=== PATIENT | male | born 1945 | race Caucasian/White ===

== ENCOUNTER → 2016-09-16 | Outpatient (CLI) | payer MEDICARE, OTHER | LOC: RAD 06:55 | PROVIDERS: ATTEND Orthopaedic Surgery | DX: M25.522 Pain in left elbow (principal); M19.022 Primary osteoarthritis, left elbow ==

== ENCOUNTER 2016-10-19 05:33 | Day surgery (SDC) | payer MEDICARE, OTHER ==
[2016-10-12 09:21] LABS: APPEARANCE,URINE CLEAR; BILIRUBIN,URINE NEGATIVE (NEGATIVE); GLUCOSE, URINE NEGATIVE (NEGATIVE); KETONES,URINE NEGATIVE (NEGATIVE); LEUKOCYTE ESTERASE,URINE NEGATIVE (NEGATIVE); NITRITE,URINE NEGATIVE (NEGATIVE); PROTEIN,URINE NEGATIVE (NEGATIVE); URINE SPECIFIC GRAVITY 1.013; UROBILINOGEN,URINE NEGATIVE mg/dL (<2.0)
[2016-10-12 09:28] LABS: HEMATOCRIT 43.2 % (37.9-51.0); HEMOGLOBIN 14.9 g/dL (13.5-17.0); HGB HCT DIFFERENCE 1.5; MEAN CORPUSCULAR HEMOGLOBIN 31.5 pg (27.0-33.4); MEAN CORPUSCULAR HGB CONC 34.4 g/dL (32.0-36.0); MEAN CORPUSCULAR VOLUME 92 fl (80-97); RED BLOOD COUNT 4.72 10^6/uL (4.35-5.55); RED CELL DISTRIBUTION WIDTH 13.5 % (11.5-14.0); WHITE BLOOD COUNT 6.9 10^3/uL (4.0-10.5)
[2016-10-12 09:58] LABS: ANION GAP 14 (5-19); BLOOD UREA NITROGEN 22 mg/dL (7-20); CALCIUM 9.9 mg/dL (8.4-10.2); CARBON DIOXIDE 23 mmol/L (22-30); CHLORIDE 103 mmol/L (98-107); GLUCOSE 95 mg/dL (75-110); POTASSIUM 4.7 mmol/L (3.6-5.0); SODIUM 139.7 mmol/L (137-145)
--- NOTE | 2016-10-12 12:59 | EKG REPORT ---
SEVERITY:- NORMAL ECG - SINUS RHYTHM : Confirmed by: Angela Nieto 12-Oct-2016 12:59:11
[~2016-10-19 05:33] MED LIST: CEFAZOLIN 2 GM/D5W RTU 2 GM/50 ML RTUPB IV PRN; LACTATED RINGERS 1000 ML IV PRN; LIDOCAINE 0.5% INJ-PF (5 MG/ML) 50 ML SDV SUBCUT PRN
[2016-10-19] MEDS ORDERED: FENTANYL CITRATE INJ/PF 100 MCG/2 ML AMPUL ONE (06:52)
[2016-10-19] MEDS ORDERED: HYDROMORPHONE HCL INJ/PF 2 MG/ML AMPULE ONE (06:52)
[2016-10-19] MEDS ORDERED: MIDAZOLAM 2 MG/2 ML INJ ONE (06:52)
[2016-10-19] MEDS ORDERED: EPHEDRINE SULFATE INJ 50 MG/1 ML AMPULE ONE (06:53)
[2016-10-19] MEDS ORDERED: ONDANSETRON HCL INJ/PF 4 MG/2 ML SDV ONE (06:53)
[2016-10-19] MEDS ORDERED: DEXAMETHASONE SOD PHOSPHATE INJ 4 MG/1 ML VIAL ONE (06:53)
[2016-10-19] MEDS ORDERED: PROPOFOL INJ 200 MG/20 ML VIAL IV ONE (06:53)
[2016-10-19] MEDS ORDERED: BUPIVACAINE HCL 0.5 % INJ/PF 30 ML SDV ONE (07:15)
[2016-10-19] MEDS ORDERED: DIPHENHYDRAMINE HCL 50 MG/ML VIAL IV PRN (08:08)
[2016-10-19] MEDS ORDERED: FENTANYL CITRATE INJ/PF 100 MCG/2 ML AMPUL IV PRN ×3 (08:08)
[2016-10-19] MEDS ORDERED: PROMETHAZINE HCL INJ 25 MG/1 ML VIAL IV PRN (08:08)
[2016-10-19] MEDS ORDERED: ONDANSETRON HCL INJ/PF 4 MG/2 ML SDV IV PRN (10:14)
[2016-10-19] MEDS ORDERED: OXYCODONE-ACETAMINOPHEN 5-325 MG TABLET PO PRN (10:14)
[2016-10-19] MEDS ORDERED: MORPHINE SULFATE 10 MG/ML INJ IV PRN (10:14)
--- NOTE | 2016-10-19 10:28 | Operative Report ---
Operative Report DATE OF SURGERY: 10/19/16 PREOPERATIVE DIAGNOSIS: Right Ulnar Nerve Entrapment Elbow/Wrist. Right Carpal Tunnel Syndrome POSTOPERATIVE DIAGNOSIS: Right Ulnar Nerve Entrapment Elbow/Wrist. Right Carpal Tunnel Syndrome. 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 We discussed treatment options and given patient's neurodiagnostic test findings the joint decision was made to proceed with operative intervention. Risks and benefits were explained patient verbalized understanding consented for the procedure. Procedure In Detail: Patient was seen and evaluated in the preoperative holding area. The LEFT upper extremity was initialized and marked. Patient received 2g of Ancef IV for bacterial prophylaxis. Patient was taken back to the operative room where transferred to the operative table and placed under general anesthesia. Once they were adequately anesthetized a nonsterile tourniquet was placed on the upper extremity. A surgical team debriefing was performed ensuring all instrumentation was available, the surgical procedure was discussed with possible concerns reviewed. The upper extremity was prepped with chlorhexidine and alcohol and draped in a sterile fashion. A timeout was done identifying correct patient, procedure and extremity everyone in attendance agree with this and verbalized no concerns. The extremity was exsanguinated the tourniquet was inflated to 250 mmHg. A 10 cm longitudinal skin incision was made centered over the cubital tunnel. Blunt dissection was performed to the soft tissues. Branches of the medial antebrachial cutaneous nerve were identified and preserved. Any peripheral vascular suture was carefully quite with bipolar cautery. The ulnar nerve was first found proximally adjacent to the medial triceps musculature and the medial intermuscular septum was then released in a distal direction of any soft tissue. There is no evidence of bony overgrowth or impingement from his previous osteoarthritis. The ulnar nerve was then released distally to its first motor branch at the level of the FCU. At the FCU there was significant atrophy and nonviable-appearing muscle as the nerve entered. Any soft tissue compression was carefully released. A vessel loop was then utilized to manipulate the nerve. The dorsal vasculature of the nerve remained intact to avoid devascularization of the nerve. A portion of the medial intermuscular septum was excised remaining compression. The septum between the fat layers anteriorly was identified and released providing an area to successfully transpose the nerve and a adiposfascial flap. The nerve was then carefully transposed anteriorly and secured with interrupted 3-0 Vicryl suture. While securing the nerve anteriorly my conference assistant held the [place] elevator to avoid inadvertent compression from the adipose fascial flap. The elbow was ranged from extension to flexion there is no evidence of residual nerve compression proximally or distally. The wound was then copiously irrigated with normal saline I then turned my attention to the Guyon and carpal tunnel release. Sissy-type skin incision was made past the wrist flexion crease to the level of Watson's cardinal line. The palmar fascia was identified and incised in line with the skin incision. The carpal tunnel was released to the level of the adipose tissue protecting the superficial palmar arch. I then released the proximal aspect of the carpal tunnel including the medial antebrachial fascia. The contents of the carpal tunnel were identified there was significant median nerve compression and evidence of anomalous palmaris profundus muscle which was debulked but not completely excised. I then turned my attention to getting canal release. The hypothenar adipose was carefully elevated and the ulnar neurovascular bundle was identified proximal to the wrist crease and followed distally. The ulnar nerve was released from the volar retinaculum there was no significant compression at the ulnar nerve at this level. The wound was copiously irrigated with normal saline. 10 mL of 0.5% Marcaine without epinephrine was injected for postoperative pain control. The skin was closed with horizontal mattress 3-0 nylon suture. The tourniquet was then deflated. There was no significant bleeding from the carpal tunnel incision or cubital tunnel incision. Some small peripheral vasculature along the skin was coagulated with bipolar cautery. The wound was once again irrigated with normal saline. The subcutaneous tissues were closed with interrupted 3-0 Vicryl suture. Skin was closed with a interrupted horizontal mattress 3-0 nylon. 20 mL of 0.5% Marcaine without epinephrine was injected for postoperative pain control. Wound was dressed with Xeroform 4 x 4' s and a soft dressing. Sponge counts, instrument counts, needle counts counts were correct. Patient was then awoken from anesthesia. Transferred from the operating room table to the operating room stretcher. There was no intraoperative complications patient tolerated procedure well stable to PACU. Postoperative plan: Patient will follow-up in the office in 10-14 days or as scheduled. He will begin range of motion immediately while in the soft dressing.
--- NOTE | 2016-10-19 10:30 | PDOC DISCHARGE SUMMARY ---
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 Delio Stephenson @ [facility] to be seen in 10-14 days or as scheduled [place]: [place]: [place]: Keep dressing clean/dry/intact. Ice and elevate May begin finger range of motion attempting to make full fist. Stool softener of choice when on pain medication. Prescriptions: Oxycodone HCl/Acetaminophen [Percocet 5-325 mg Tablet] 1 tab PO ASDIR PRN #45 tab PRN Reason: Discharge Diet: As Tolerated Respiratory Treatments at Home: Deep Breathing/Coughing Discharge Activity: Activity As Tolerated Report the Following to Your Physician Immediately: Fever over 101 Degrees, Unusual Bleeding, Redness, Swelling, Warmth, Increased Soreness, Drainage-Foul Smelling
[2016-10-19 13:17] VITALS: BP 121/76
== END 2016-10-19 13:10 | disposition home or self-care (01) ==
LOC: OROUT 05:33
PROVIDERS: ATTEND Orthopaedic Surgery
PROC: 01N50ZZ Release Median Nerve, Open Approach (ICD-10-PCS; 2016-10-19)
PROC: 01N40ZZ Release Ulnar Nerve, Open Approach (ICD-10-PCS; 2016-10-19)
PROC: 0KB90ZX Excision of Right Lower Arm and Wrist Muscle, Open Approach, Diagnostic (ICD-10-PCS; 2016-10-19)
PROC: 01N40ZZ Release Ulnar Nerve, Open Approach (ICD-10-PCS; principal; 2016-10-19 07:45)
DX: G56.22 Lesion of ulnar nerve, left upper limb (principal); G56.02 Carpal tunnel syndrome, left upper limb; E78.5 Hyperlipidemia, unspecified; I10 Essential (primary) hypertension; Z79.82 Long term (current) use of aspirin; Z79.899 Other long term (current) drug therapy; Q68.8 Other specified congenital musculoskeletal deformities
CPT/HCPCS: 93005; 36415; 85027; 80048; 81001; 88304 ×2; 71020; 93010; 64718; 64721; 64719; 25076; J2250; J1100; J3490; J3010; J1170; J2405; J2704; J0690; 1810

== ENCOUNTER → 2020-07-30 | Outpatient (CLI) | payer MEDICARE, OTHER ==
--- NOTE | 2020-07-30 15:21 | RADIOLOGY REPORT (SQ) ---
EXAM DESCRIPTION: MRI LUMBAR SPINE WITHOUT IMAGES COMPLETED DATE/TIME: 07/30/2020 12:48 pm REASON FOR STUDY: (M54.5)LOW BACK PAIN M54.5 LOW BACK PAIN. Pain in the low back radiating down th e right leg with standing and walking 2 lung. Left hip replacement. Preoperative evaluation prior t o right hip replacement. COMPARISON: None. TECHNIQUE: Sagittal and Axial imaging includes T1, T2, STIR and gradient echo sequences. Coronal T2/ HASTE imaging. LIMITATIONS: None. FINDINGS: VISUALIZED UPPER ABDOMEN: Limited evaluation. No acute or suspicious findings suggested. SEGMENTATION: No transitional anatomy. The lowest well-developed disc space is labeled L5-S1. ALIGNMENT: Anatomic. VERTEBRAE: No acute fracture or abnormal bone marrow signal. Marginal osteophytes and endplate cysti c change. BONE MARROW: Normal. No marrow replacement or reactive changes. DISC SIGNAL: Multilevel degenerative disc disease with loss of intervertebral disc signal and height at all thoracic and lumbar spine levels. POSTERIOR ELEMENTS: Generally intact. No pars defect evident. There is facet arthropathy. . HARDWARE: None in the spine. CORD AND CONUS: Normal in size and signal intensity. Conus at the appropriate level. SOFT TISSUES: No aortic aneurysm seen. No bulky retroperitoneal adenopathy or mass. No paraspinal mas s or fluid. T10-T11: There is a moderate broad-based disc bulge with disc material extending asymmetrically to th e right contributing to moderate right neural foraminal stenosis. No cord compression. At T11-T12: There is a small broad-based posterior disc bulge. Loss of intervertebral disc height a nd signal. No significant spinal canal stenosis. No significant neural foraminal stenosis. At T12-L1: There is severe loss of intervertebral discs signal and height. Small broad-based utility tech ior disc bulge with mild flattening of the ventral thecal sac. No cord compression or nerve root com pression. Disc material does extend to the right and left neural foramen with moderate bilateral qasim ral foraminal stenosis, left greater than right. L1-L2: There is moderate loss of intervertebral disc height and abnormal signal. Broad-based posteri or disc bulge with mild flattening of the ventral thecal sac. No spinal canal stenosis. No nerve ro ot compression. Asymmetric disc material extends to the left neural foramen with moderate left neura l foraminal stenosis. L2-L3: Loss of intervertebral disc height and signal. No significant disc bulge or spinal canal sten osis. Bilateral facet arthropathy. Mild bilateral neural foraminal stenosis. There is a small syno vial cyst along the posterior spinal canal related to the left this set. This contributes to mild sp inal canal stenosis secondary to mass effect with spinal canal measuring about 7 mm at this level. L3-L4: Loss of normal intervertebral disc signal and height. Small to moderate broad-based posterior disc bulge. Mild flattening of the ventral thecal sac. No significant spinal canal stenosis. Face t arthropathy and disc material contribute to moderate right and severe left neural foraminal stenosi s at this level. L4-L5: Loss of intervertebral disc signal and height. Moderate broad-based posterior disc bulge with resulting moderate to severe acquired spinal canal stenosis spinal canal measuring about 6 mm at thi s level. Disc material extends to the right and left neural foramen with severe bilateral neural for aminal stenosis. Crowding of the nerve roots secondary to mass effect. L5-S1: Loss of intervertebral disc signal and height. Small broad-based posterior disc bulge. No si gnificant spinal canal stenosis. No neural foraminal stenosis. LOWER THORACIC: Incompletely imaged. No stenosis seen. SACRUM: Visualized upper sacrum intact. OTHER: No other significant findings. IMPRESSION: Multilevel degenerative disc disease, spondylosis, and facet arthropathy. Of note, ther e is moderate to severe acquired spinal canal stenosis secondary to disc bulge at L4-L5 with crowding of the nerve roots at this level. Additional levels as described above. TECHNICAL DOCUMENTATION: JOB ID: [id number] 2010 [employer]- All Rights Reserved Reading location - IP/workstation name: [email or web address]
== END ==
LOC: RAD 12:35
PROVIDERS: ATTEND Orthopaedic Surgery
DX: M51.36 Other intervertebral disc degeneration, lumbar region (principal); M48.061 Spinal stenosis, lumbar region without neurogenic claudication; M54.5 Low back pain
CPT/HCPCS: 72148